=== PATIENT | female | born 1965 | race Caucasian/White ===

== ENCOUNTER 2017-10-29 13:29 | Emergency (ER) | payer MEDICAID ==
[2017-10-29 13:32] VITALS: BP 163/94
== END 2017-10-29 14:23 | disposition home or self-care (01) ==
LOC: ED 13:29
DX: N11.1 Chronic obstructive pyelonephritis (principal); M54.9 Dorsalgia, unspecified; I10 Essential (primary) hypertension
CPT/HCPCS: J1885

== ENCOUNTER 2018-03-16 01:07 | Emergency (ER) | payer MEDICAID ==
[~2018-03-16] VITALS: Ht 157.5 cm; Wt 81.6 kg
[2018-03-16 01:14] VITALS: Ht 157.5 cm; Wt 81.6 kg
[2018-03-16 02:15] VITALS: BP 148/78
== END 2018-03-16 02:15 | disposition home or self-care (01) ==
LOC: ED 01:07
DX: N30.00 Acute cystitis without hematuria (principal); I10 Essential (primary) hypertension
CPT/HCPCS: J1885

== ENCOUNTER 2019-12-20 00:10 | Emergency (ER) | payer MEDICAID ==
[~2019-12-20] VITALS: Ht 152.4 cm; Wt 76.2 kg
[2019-12-20 00:14] VITALS: Ht 152.4 cm; Wt 76.2 kg
[2019-12-20 02:51] VITALS: BP 131/76
== END 2019-12-20 03:05 | disposition home or self-care (01) ==
LOC: ED 00:10
DX: R31.9 Hematuria, unspecified (principal); N23 Unspecified renal colic; I10 Essential (primary) hypertension
CPT/HCPCS: Q0092